=== PATIENT | male | born 1950 | race Caucasian/White ===

== ENCOUNTER 2021-08-23 10:30 | Day surgery (SDC) | payer MEDICARE ==
[2021-08-21 09:52] VITALS: BMI 32.4
--- NOTE | 2021-08-22 20:29 | HP ---
HISTORY AND PHYSICAL DATE OF SURGERY: 08/23/2021 Arian Olivo is a 71-year-old gentleman seen with progressive left knee pain. We discussed options for treatment. He elected to proceed with arthroscopy. Consent was obtained. Cardiac clearance was provided by Dr. Eden. PAST MEDICAL HISTORY: Hypertension, hyperlipidemia, cardiovascular disease. PAST SURGICAL HISTORY: Colon resection, right above-knee amputation, heart valve replacement, lithotripsy. DAILY MEDICATIONS: Atorvastatin, losartan, warfarin, aspirin. ALLERGIES: ATIVAN, HALDOL. SOCIAL HISTORY: He denies tobacco use. PHYSICAL EVALUATION OF THE LEFT KNEE: His range of motion is zero to 115 degrees. There is tenderness along the medial joint line. Positive medial Rigo's. Ligaments are stable. Hip rotation is without pain. His distal neurovascular exam is intact. Radiographs of the left knee reveal mild osteoarthritic changes. IMPRESSION: 1. Internal derangement of left knee with medial meniscal tear. 2. Hypertension. 3. Hyperlipidemia. PLAN: Left knee arthroscopy with partial meniscectomy and debridement. MMODL / IJN: [id number] /
[~2021-08-23 10:30] MED LIST: HYDROmorphone 0.5 MG/0.5 ML SYRINGE IVP PRN; LIDOCAINE 1% (10MG/ML) FOR IV START INTRADERMA PRN; ONDANSETRON 4 MG/2 ML VIAL IVP ONE
[2021-08-23] MEDS: LACTATED RINGERS 1,000 ML IV SCH ×3 (10:41→16:35)
[2021-08-23] MEDS ORDERED: BUPIVACAINE (PF) 0.25% 30 ML VIAL SQ ONE ×2 (12:26→14:37)
[2021-08-23 12:50] LABS: INR 1.1 (<1.2); Prothrombin Time 11.2 sec (9.0-12.0)
[2021-08-23] MEDS ORDERED: MIDAZOLAM 2 MG/2 ML VIAL ONE (13:55)
[2021-08-23] MEDS ORDERED: PROPOFOL 10 MG/ML 20 ML VIAL IV ONE (13:55)
[2021-08-23] MEDS ORDERED: .fentaNYL (PF) 50 MCG/ML AMP ONE (13:55)
[2021-08-23 14:52] VITALS: TEMP 97.5
--- NOTE | 2021-08-23 14:57 | P.OP ---
Date of Procedure: 08/23/21 Preoperative Diagnosis: Internal derangement left knee Postoperative Diagnosis: 1. Tear medial meniscus left knee 2. Grade 4 chondromalacia medial femoral condyle left knee 3. Reactive synovitis medial, lateral and suprapatellar compartments left knee Procedure(s) Performed: 1. Arthroscopic partial medial meniscectomy left knee 2. Arthroscopic chondroplasty medial femoral condyle left knee 3. Arthroscopic microfracture medial femoral condyle left knee 4. Arthroscopic partial synovectomy medial, lateral and suprapatellar compartments left knee Anesthesia: local, spinal Surgeon: Tom Wilkerson Estimated Blood Loss (ml): 6 Pathology: none sent Condition: stable Disposition: PACU Indications for Procedure: 71-year-old patient seen with progressive left knee pain. After having treatment options discussed, he elected to proceed with arthroscopy. Operative Findings: See description of procedure Description of Procedure: Patient was taken to the operative suite. Patient underwent a spinal anesthetic by the department of anesthesia. Patient was given preoperative antibiotics. The left lower extremity was placed in a well-padded arthroscopic leg enrique. The left leg was prepped and draped in the normal sterile orthopedic fashion. A lateral parapatellar and suprapatellar incision was made. Trochars were inserted. Arthroscopy was initiated. Suprapatellar pouch left. The patellofemoral joint appeared appeared to articulate congruently. There was grade 1 chondromalacia of the patella with osteochondraltearspresent. The scope was guided into the medial gutter. No loose bodies or plica were identified. The scope was then guided into the medial compartment. A medial parapatellar incision was made. Trocar inserted followed by probe. There was a complex tear involving the posterior horn medial meniscus. There were grade 4 chondromalacia changes of medial femoral condyle with use osteochondral flap tears present. There was thick reactive synovitis anteriorly. I performed a partial medial meniscectomy getting down to stable meniscal tissue. I performed a chondroplasty of the medial femoral condyle getting down to stable osteochondral tissue. I performed a partial synovectomy decompressing the thick reactive synovitis. The residual meniscus was stable. The residual osteochondral surface was stable. There was good decompression of the synovitis. I did note an area of exposed bone measuring about 1 cm along the weightbearing surface of the medial femoral condyle. I performed a microfracture to that area penetrated the bone with resultant bleeding at the microfracture site. I again probed the area and was stable. Scope and probe were then guided into the intercondylar notch. Cruciates were identified, probed and found to be stable. The scope and probe were then guided into lateral compartment. Lateral meniscus was found to be stable. There were some grade 1 chondromalacia changes lateral compartment with no tears. There was some thick reactive synovitis anteriorly. I introduced a motorized shaver and performed a partial synovectomy. Shaver was removed. There appeared be good decompression of the synovitis. The scope was in guided back into the suprapatellar compartment. I introduced a motorized shaver into the super patellar compartment. I debrided out some piecemeal fragments of meniscus I encountered. I performed a partial synovectomy. Shaver was removed. There was good decompression of the synovitis. I took one more look around the entire knee, no residual debris. Instruments were now removed from the joint. The joint was infiltrated with .25% Marcaine. Steri-Strips were applied to the portal sites. Sterile dressings were applied. The patient was placed into a STEF hose. No tourniquet was utilized. The patient was awak ened, transferred to a bed and taken to recovery stable satisfactory condition.
[2021-08-23 16:52] VITALS: BP 122/80; PULSE 77; RESP 20
== END 2021-08-23 16:55 | disposition home or self-care (01) ==
LOC: OR 10:30
PROVIDERS: ATTEND Orthopaedic Surgery
DX: S83.242A Other tear of medial meniscus, current injury, left knee, initial encounter (principal); M94.262 Chondromalacia, left knee; M65.9 Synovitis and tenosynovitis, unspecified; I10 Essential (primary) hypertension; I25.10 Atherosclerotic heart disease of native coronary artery without angina pectoris; F32.9 Major depressive disorder, single episode, unspecified; E78.5 Hyperlipidemia, unspecified; Z79.899 Other long term (current) drug therapy; Z79.01 Long term (current) use of anticoagulants; Z88.8 Allergy status to other drugs, medicaments and biological substances
CPT/HCPCS: 85610; 29881; 29879; 29876; J2250; J0690; J2405; J3010; J2704

== ENCOUNTER → 2022-02-22 | Outpatient (CLI) | payer MEDICARE | END | disposition home or self-care (01) | LOC: LABPAT 11:54 | PROVIDERS: ATTEND Orthopaedic Surgery | DX: Z01.812 Encounter for preprocedural laboratory examination (principal); Z22.322 Carrier or suspected carrier of Methicillin resistant Staphylococcus aureus; M17.12 Unilateral primary osteoarthritis, left knee | CPT/HCPCS: 87070 ==

== ENCOUNTER 2022-04-15 11:04 | Inpatient (IN) | payer MEDICARE ==
[2022-04-12 08:31] VITALS: BMI 29.9
--- NOTE | 2022-04-14 12:07 | HP ---
HISTORY AND PHYSICAL REASON FOR ADMISSION: Surgery is scheduled for 04/15/2022 HISTORY OF PRESENT ILLNESS: Arian Olivo is a 71-year-old patient seen with symptomatic left knee osteoarthritis. We discussed options for treatment. He elected to proceed with left total knee arthroplasty. Consents obtained. Medical clearance was provided by. Dr. Singh. Cardiac clearance was provided by Dr. Eden. PAST MEDICAL HISTORY: Hyperlipidemia, hypertension, cardiovascular disease. PAST SURGICAL HISTORY: Right knee amputation, valve replacement surgery, colon resection, lithotripsy. DAILY MEDICATIONS: Atorvastatin, losartan, sertraline, warfarin, Tylenol. ALLERGIES: ATIVAN, HALDOL. SOCIAL HISTORY: Denies tobacco use. PHYSICAL EVALUATION OF THE LEFT KNEE: Range of motion is -3/4-125. Mild effusion. Tenderness medial joint line. Crepitus along the medial patellofemoral compartments with range of motion. Pain with patellofemoral compression. Ligaments stable. Hip rotation without pain. Distal neurovascular exam intact. RADIOGRAPHS: Radiographs of the left knee reveal severe osteoarthritic changes. IMPRESSION: 1. Left knee osteoarthritis. 2. Hypertension. 3. Hyperlipidemia. 4. Cardiovascular disease. PLAN: Left total knee arthroplasty. Surgery is 04/15/2022. MMODL / IJN: [id number] /
[~2022-04-15 11:04] MED LIST changes: +ACETAMINOPHEN TAB 500 MG TAB PO PRN; +DEXAMETHASONE SOD PHOSPHATE 4 MG/ML 1 ML VIAL IV ONE; -HYDROmorphone 0.5 MG/0.5 ML SYRINGE IVP PRN; +LACTATED RINGERS 1,000 ML IV SCH; -LIDOCAINE 1% (10MG/ML) FOR IV START INTRADERMA PRN; +MELOXICAM 7.5 MG TAB PO PRN; +TRANEXAMIC ACID IN NACL,ISO-OS 1,000 MG in SALINE 1 100ML.BAG IVPB PRN; +fentaNYL (PF) 50 MCG/ML 2 ML AMP IV PRN
[2022-04-15] MEDS ORDERED: MIDAZOLAM 2 MG/2 ML VIAL IVP ONE (12:12)
[2022-04-15 12:23] LABS: INR 1.2 (<1.2); Prothrombin Time 12.2 sec (9.0-12.0)
[2022-04-15] MEDS ORDERED: NEOSTIGMINE 1 MG/ML 10 ML VIAL ONE (12:37)
[2022-04-15] MEDS ORDERED: LIDOCAINE 2% INJ 20 MG/ML (2 ML VIAL) ONE (12:37)
[2022-04-15] MEDS ORDERED: PHENYLEPHRINE-0.9% NACL SYG 1,000 MCG/10 ML SYRINGE ONE (12:37)
[2022-04-15] MEDS ORDERED: PROPOFOL 10 MG/ML 20 ML VIAL IV ONE (12:37)
[2022-04-15] MEDS ORDERED: MIDAZOLAM 2 MG/2 ML VIAL ONE (12:37)
[2022-04-15] MEDS ORDERED: GLYCOPYRROLATE 0.2 MG/ML 2 ML VIAL ONE (12:37)
[2022-04-15] MEDS ORDERED: ePHEDrine 50 MG/ML 1 ML VIAL ONE (12:37)
[2022-04-15] MEDS ORDERED: TRANEXAMIC ACID IN NACL,ISO-OS 1,000 MG/100 ML BAG ONE (12:37)
[2022-04-15] MEDS ORDERED: SUCCINYLCHOLINE CHLORIDE 200 MG/10 ML VIAL IV ONE (12:37)
[2022-04-15] MEDS ORDERED: HYDROmorphone (PF) 1 MG/ML ONE (12:37)
[2022-04-15] MEDS ORDERED: ROCURONIUM 10 MG/ML (5 ML VIAL) IV ONE (12:37)
[2022-04-15] MEDS ORDERED: fentaNYL (PF) 50 MCG/ML 2 ML AMP ONE (12:37)
[2022-04-15] MEDS ORDERED: ROPIVACAINE 5 MG/ML 30 ML VIAL ONE (12:37)
[2022-04-15] MEDS ORDERED: ceFAZolin 1,000 MG in SODIUM CHLORIDE 0.9% 1,000 ML IRRIGATION ONE (13:16)
[2022-04-15] MEDS ORDERED: ROPIVACAINE 0.2%-NS ON-Q PUMP 1,090 MG, EMPTY PAIN BALL 1 EACH MISCELLANE PRN (13:45)
--- NOTE | 2022-04-15 14:04 | P.ANPRN ---
Procedure Note - Anesthesia - Nerve Block Performed Left Adductor Canal Infusion Time Out Performed: Yes (1211) Date of Procedure: 04/15/22 Procedure Start Time: 12:11 Procedure Stop Time: 12:21 Location of Patient: PreOp Indication: Acute Post-Operative Pain, Dx/Pain Location, Requested by Surgeon Specifically requested for management of pain by DrMarely: Tom Wilkerson Sedation Type: Sedate with meaningful contact maintained Preparation: Sterile Prep, Sterile Dressing Position: Supine Catheter: Indwelling Needle Types: Pajunk Needle Gauge: 18 Ultrasound used to visualize needle placement: Yes Ultrasound used to observe medication spread: Yes Injectate: 0.5% Ropivacaine (see comment for volume) (15 cc) Blood Aspirated: No Pain Paresthesia on Injection Noted: No Resistance on Injection: Normal Image Stored and Saved: Yes Events: Uneventful and Well Tolerated (30 cc) Left iPack Single Time Out Performed: Yes Date of Procedure: 04/15/22 Location of Patient: PreOp Indication: Acute Post-Operative Pain, Dx/Pain Location (Left Knee), Requested by Surgeon Specifically requested for management of pain by DrMarely: Tom Wilkerson Sedation Type: Sedate with meaningful contact maintained Preparation: Sterile Prep Position: Right Lateral Catheter: None Needle Types: Pajunk Needle Gauge: 21 Ultrasound used to visualize needle placement: Yes Ultrasound used to observe medication spread: Yes Injectate: 0.5% Ropivacaine (see comment for volume) (15 cc) Blood Aspirated: No Pain Paresthesia on Injection Noted: No Resistance on Injection: Normal Image Stored and Saved: Yes Events: Uneventful and Well Tolerated
--- NOTE | 2022-04-15 14:27 | P.OP ---
Date of Procedure: 04/15/22 Preoperative Diagnosis: Left knee osteoarthritis Postoperative Diagnosis: Left knee osteoarthritis Procedure(s) Performed: Left total knee arthroplasty Implants: 1. Depuy attune size 6 left cruciate retaining cemented femur 2. Depuy attune size 6 fixed bearing cemented tibial baseplate 3. Depuy attune size 6 fixed bearing cruciate retaining 14 mm polyethylene tibial insert 4. Depuy attune 38 mm all polyethylene cemented patella Anesthesia: GETA, regional (Adductor canal catheter, Ipack block) Surgeon: Tom Wilkerson Melter Supervisor [employer] #1: Naif Gutierrez Estimated Blood Loss (ml): 45 Pathology: other (Bone) Condition: stable Disposition: PACU Indications for Procedure: 71-year-old patient seen with symptomatic left knee osteoarthritis. After treatment options were discussed, he elected to proceed with total knee arth roplasty. Operative Findings: See description of procedure Description of Procedure: Patient was taken to the operative suite after having an adductor canal catheter placed by the department of anesthesia as well as an Ipack block for postoperative pain management. Patient underwent a general anesthetic by the department of anesthesia. Patient was given preoperative IV intake antibiotics and TXA. A well-padded tourniquet was placed about the left lower extremity. The lower extremity was then prepped and draped in the normal sterile orthopedic fashion. The extremity was elevated, a tourniquet was insufflated to 300. A standard anterior incision was made sharply through skin. Dissection was taken down through the subcutaneous soft tissues down to the extensor mechanism. A medial arthrotomy was performed, patella was everted and knee was flexed. There was advanced osteoarthritis noted. I introduced my distal intramedullary femo ral drill. I then introduced the distal femoral cutting jig. Ang FAUST secured the cutting jig with 2 pins. I held retractors in position while Ang FAUST performed the distal femoral resection through the guide area we now removed her distal femoral cutting guide. We now placed our 4-in-1 femoral cutting block and positioned and it was secured with 2 pins by Ang FAUST while I held the block in position. The distal femoral finishing was now completed. A proximal tibial cutting guide was positioned. I held the guide in the appropriate position with both hands well Ang FAUST inserted stabilizing pins into the guide. Proximal tibial cut was made. We now placed a trial femoral component into position, along with an appropriate size tibial tray and insert. We now took the knee through range of motion and had full extension good flexion and good overall soft tissue balance noted. The patella was everted and stabilized with 2 towel clips held by Ang FAUST while I performed a flush with patellar quad tendon utilizing a fresh sawblade. We templated the patella, appropriate drill holes were made. An appropriate trial patella was positioned, knee was taken through full range of motion with the patella tracking very nicely. The trial patella was removed. Drill holes were made through the femoral component. All trial components were removed after marking off the appropriate rotation of the tibia. Retractors were now positioned along the proximal tibia. An appropriate keel punch was made with the appropriate size tibial guide by myself on Ang FAUST assisted by holding retractors. At this point appropriate size implants were chosen and opened. The joint was irrigated copiously with pulse lavage mechanical irrigation. The posterior capsule was infiltrated with local analgesic. The wound was irrigated with pulse lavage mechanical irrigation. We mixed antibiotic methylmethacrylate. We placed the knee into flexion. We placed multiple retractors assisted by Ang FAUST to expose the proximal tibia. Once the methyl methacrylate was ready, the tibial component was cemented into place removing any excess methylmethacrylate form by both myself and Ang FAUST. The femoral component was cemented into place removing the removing any excess methylmethacrylate performed by both myself and Ang FAUST. We then inserted the appropriate size polyethylene tibial insert. We made sure that it was locked into position. We took the knee into full extension, and then back in a flexion making sure we had removed any excess methylmethacrylate. The patellar component was then cemented down and secured with clamp. Excess methylmethacrylate removed. We kept the knee in full extension, patellar clamp in position until methylmethacrylate had hardened. Once it had hardened the patellar clamp was removed. The knee was taken through full range of motion. The patella tracked nicely. There was good soft tissue balancing. The tourniquet was now released. Additional hemostasis was achieved via electrocautery. A second gram of TXA was given. The wound again was irrigated with pulse lavage mechanical irrigation. The superficial soft tissues were infiltrated local analgesic. The extensor mechanism was repaired with Ethibond suture. We checked the repair with range of motion and it was stable. The subcutaneous soft tissues were repaired with Vicryl in layers. The skin was approximated with pernio/Dermabond. Sterile dressings were applied followed by loose web roll and Marquis bandage. The patient was transferred to a bed, and taken to recovery in stable and satisfactory condition. Ang FAUST assisted with this complex procedure.
[2022-04-15] MEDS ORDERED: HYDROmorphone 0.5 MG/0.5 ML SYRINGE IVP PRN ×2 (14:28)
[2022-04-15] MEDS ORDERED: NALOXONE 0.4 MG/ML 1 ML VIAL IV PRN (14:28)
[2022-04-15] MEDS ORDERED: ONDANSETRON 4 MG/2 ML VIAL IVP PRN (14:28)
[2022-04-15] MEDS ORDERED: HYDROmorphone 0.5 MG/0.5 ML SYRINGE IVP ONE ×4 (15:09→15:38)
--- NOTE | 2022-04-15 15:20 | XR ---
Limited left knee HISTORY: Status post left knee arthroplasty 2 views the left knee Patient is status post left knee arthroplasty. There is anatomic alignment. Lucencies present within the soft tissues consistent with postop state. There is soft tissue swelling. IMPRESSION: Orthopedic follow-up.
[2022-04-15] MEDS ORDERED: ONDANSETRON 4 MG/2 ML VIAL IVP ONE (15:38)
[2022-04-15] MEDS: LACTATED RINGERS 1,000 ML IV SCH (16:30)
[2022-04-15] MEDS: HYDROcodone/APAP 5-325MG 1 EACH TAB PO PRN (17:38)
[2022-04-15] MEDS ORDERED: WARFARIN 2 MG TAB PO ONE (18:00)
[2022-04-15] MEDS: ENOXAPARIN 30 MG/0.3 ML SYRINGE SQ SCH (20:17)
[2022-04-15] MEDS: SENNOSIDES-DOCUSATE SODIUM 1 EACH TAB PO SCH (20:17)
[2022-04-15] MEDS: HYDROmorphone 0.5 MG/0.5 ML SYRINGE IVP PRN (21:25)
[2022-04-16] MEDS: HYDROmorphone 0.5 MG/0.5 ML SYRINGE IVP PRN ×3 (00:40→23:16)
--- NOTE | 2022-04-16 00:40 | P.CONS ---
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 He tolerated by mouth intake. Currently he denies any chest pain trouble breathing abdominal pain nausea vomiting. Patient was able to urinate with no issues Review of Systems Pertinent positives as noted in HPI. 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), hx migraines, skin cancer, HX COLITIS, COVID x 2(last November 2021), hx pancreatitis, History of Any Multi-Drug Resistant Organisms: MRSA Year Discovered:: 2013 MDRO Source:: rt leg Past Surgical History: Appendectomy, Bowel Resection, Cardiac Valve Replacement, Hernia Repair, Orthopedic Surgery Additional Past Surgical History / Comment(s): BOWEL RESECTION X3, COLONOSCOPY, HEART VALVE REPLACEMENT, SKIN CANCER REMOVED, RT AKA-2014 OR 2016, BILAT CATARACTS REMOVED WITH LENS IMPLANTS, fem fem bypass Past Anesthesia/Blood Transfusion Reactions: Motion Sickness Past Psychological History: Depression Smoking Status: Former smoker Past Alcohol Use History: Occasional Additional Past Alcohol Use History / Comment(s): QUIT SMOKING CIGARS 2013 Past Drug Use History: None Reported - Past Family History Father Family Medical History: Cancer Medications and Allergies Home Medications Medication Instructions Recorded Confirmed Type Aspirin 81 mg PO DAILY 08/21/21 04/15/22 History Atorvastatin [Lipitor] 10 mg PO HS 08/21/21 04/15/22 History Glucosamine/Chondr Ballard A Sod [Osteo 2 each PO DAILY 08/21/21 04/15/22 History Bi-Flex Caplet] Losartan [Cozaar] 25 mg PO DAILY 08/21/21 04/15/22 History Multivit-Min/Folic/Vit K/Lycop 1 each PO DAILY 08/21/21 04/15/22 History [Men's Multivitamin Tablet] Sertraline [Zoloft] 100 mg PO DAILY 08/21/21 04/15/22 History Warfarin [Coumadin] 2.5 mg PO HS 08/21/21 04/15/22 History Zinc 50 mg PO DAILY 08/21/21 04/15/22 History Acetaminophen [Tylenol] 650 mg PO HS 04/12/22 04/15/22 History Allergies Allergy/AdvReac Type Severity Reaction Status Date / Time haloperidol [From Haldol] Allergy COMBATATIVE, Verified 04/15/22 11:45 AGITATED lorazepam [From Ativan] Allergy COMBATATIVE, Verified 04/15/22 11:45 AGITATED Physical Exam Vitals: Vital Signs Temp Pulse Resp BP Pulse Ox 04/15/22 19:37 91 110/74 95 04/15/22 19:22 95 119/80 93 L 04/15/22 19:07 102 H 129/82 04/15/22 18:52 99 111/69 86 L 04/15/22 18:37 96 128/79 87 L 04/15/22 18:23 91 122/77 94 L 04/15/22 18:07 100 135/87 92 L 04/15/22 17:53 111 H 125/85 92 L 04/15/22 17:22 89 119/76 95 04/15/22 17:00 16 04/15/22 16:26 92 16 111/75 96 04/15/22 16:02 90 16 104/64 92 L 04/15/22 15:47 82 16 107/78 95 04/15/22 15:37 80 16 119/78 96 04/15/22 15:20 78 16 110/71 95 04/15/22 15:05 80 16 106/73 96 04/15/22 15:00 87 16 103/67 95 04/15/22 12:32 43 L 16 130/74 95 04/15/22 11:37 97.5 F L 64 16 150/80 94 L Intake and Output 04/15/22 04/15/22 04/16/22 14:59 22:59 06:59 Intake Total 751 1000 Output Total 45 Balance 706 1000 Intake: IV 751 350 Intake, IV Titration 300 Amount Lactated Ringers 1,000 ml 300 @ 100 mls/hr IV .Q10H [facility] Rx#:[id number] Oral 350 Output: Estimated Blood Loss 45 Other: Voiding Method Urinal Weight 88.1 kg 88.1 kg Constitutional: No acute distress, conversant, pleasant Eyes: Anicteric sclerae, moist conjunctiva, Pupils equal round reactive to light ENMT: NC/AT Oropharynx clear, no erythema, or exudates Neck: Supple, FROM, no masses, or JVD No carotid bruits No thyromegaly Lungs: Clear to auscultation Clear to percussion Normal respiratory effort, no accessory muscle use Cardiovascular: Heart regular in rate and rhythm, No murmurs, gallops, or rubs No peripheral edema Abdominal: Soft Nontender, no guarding, rebound or rigidity Abdomen moving with respiration Normoactive bowel sounds No hepatomegaly, No splenomegaly No palpable mass No abdominal wall hernia noted Skin: Normal temperature, tone, texture, turgor No induration No subcutaneous nodules No rash, lesions No ulcers Extremities: Right above-knee amputation, right hand mid phalangeal amputation of the second finger No digital cyanosis No clubbing Pedal left intact Radial pulses intact and symmetrical No calf tenderness Psychiatric: Alert and oriented to person, place and time Appropriate affect fair judgement Neuro Muscles Strength 5/5 in bilateral upper extremities, limited exam over lower extremities to surgery patient's postop Sensation to light touch grossly present throughout Cranial nerves II-XII grossly intact No focal sensory deficits Lymphatics: no palpable cervical or supraclavicular , or inguinal lymph nodes Results Labs: Abnormal Lab Results - Last 24 Hours (Table) 04/15/22 Range/Units 12:06 PT 12.2 H (9.0-12.0) sec INR 1.2 H (<1.2) Assessment and Plan Assessment: Status post left total knee arthroplasty postoperative day 0 Pain management per primary team orthopedics DVT prophylaxis currently on Coumadin and Lovenox History of peripheral arterial disease, resume statin and aspirin Obstructive sleep apnea on CPAP Hyperlipidemia on statin Patient stable from medical standpoint Check CBC and BMP in the morning Thank you for allowing us to participate in the care of this patient. Do not hesitate to contact us with questions. Someone can be reached from the [facility] hospitalist group at all hours of the day at [phone].
[2022-04-16] MEDS: LACTATED RINGERS 1,000 ML IV SCH ×2 (00:42→14:59)
[2022-04-16] MEDS: HYDROcodone/APAP 7.5-325MG 1 EACH TAB PO PRN ×2 (02:10→08:07)
--- NOTE | 2022-04-16 07:49 | P.PN ---
Progress Note - Text Progress Note Date: 04/16/22 Postoperative day # 1 status post total knee arthroplasty, on adductor canal perineural catheter placed for postoperative analgesia. Ropivacaine 0.2% 8 mL per hour through ON-Q pump continuous infusion. Pain is well controlled. On visual analog scale 5/10 Patient is taking PRN oral pain medications. Catheter site: Looks Ok. There is no erythema or tenderness. Continue with the current pain management plan and will follow.
--- NOTE | 2022-04-16 10:02 | P.PN ---
Subjective Progress Note Date: 04/16/22 Principal diagnosis: Status post left total knee arthroplasty Patient was evaluated today at bedside, he is resting in his hospital chair. Patient does note some discomfort in the left knee. I was discussed with physical therapy prior to evaluating the patient, they stated once he was up and moving he did very well. He was having a lot of difficulty with his prosthetic leg on the right lower extremity. Patient does live at home with his . Currently denies any headaches, lightheadedness, chest pain or shortness of breath. Objective - Vital Signs Vital signs: Vital Signs Temp 97.8 F 04/16/22 07:34 Pulse 72 04/16/22 07:34 Resp 17 04/16/22 08:07 BP 117/74 04/16/22 07:34 Pulse Ox 96 04/16/22 08:05 FiO2 Intake & Output 04/15/22 04/16/22 04/16/22 18:59 06:59 18:59 Intake Total 1751 Output Total 45 500 Balance 1706 -500 Weight 88.1 kg Intake: IV 1101 Intake, IV Titration 300 Amount Lactated Ringers 1,000 ml 300 @ 100 mls/hr IV .Q10H [facility] Rx#:[id number] Oral 350 Output: Urine 500 Estimated Blood Loss 45 Other: Voiding Method Urinal Urinal - Exam Left lower extremity: Incision is clean, dry, and intact. The foam dressing is in good condition. Thre is minimal soft tissue swelling and ecchymosis surrounding the medial and l ateral aspects of the incision. calf is soft, no tenderness with palpation. Plantar flexion, dorsiflexion, EHL, FHL are intact. Sensory exam to light touch throughout the extremity is intact, dosal pedis pulses 2+. - Labs Labs: Abnormal Lab Results - Last 24 Hours (Table) 04/15/22 Range/Units 12:06 PT 12.2 H (9.0-12.0) sec INR 1.2 H (<1.2) Assessment and Plan Assessment: Postoperative day #1 status post left total knee arthroplasty Plan: Pain control, continue with oral medication. I did add tramadol 50 mg every 6 hours as needed for breakthrough DVT prophylaxis, Coumadin has been resumed. We'll continue Lovenox until INR is therapeutic Wound care, keep incision covered and dry. Do not remove the foam dressing at this time Ice and elevate the extremity often Continue PT/OT Encourage incentive spirometer Medical recommendations Discharge planning: Discussed with case management today possibility of subacute rehab. We will monitor patient Day or so with regards to his pain control and activity level to determine best fit for discharge. Time with Patient: Less than 30
[2022-04-16 10:10] LABS: Basophils # (A) 0.02 X 10*3/uL (0.00-0.10); Basophils % (A) 0.1 %; Eosinophils # (A) 0 X 10*3/uL (0.04-0.35); Eosinophils % (A) 0 %; HCT 40.5 % (39.6-50.0); HGB 13.1 g/dL (13.0-17.0); Immature Grans, Automated 0.5 %; Lymphocytes # (A) 0.54 X 10*3/uL (0.90-5.00); Lymphocytes % (A) 3.9 %; MCH 30.2 pg (27.0-32.0); MCHC 32.3 g/dL (32.0-37.0); MCV 93.3 fL (80.0-97.0); Mean Platelet Volume 11.8 fL (9.5-12.2); Monocytes # (A) 1.19 X 10*3/uL (0.20-1.00); Monocytes % (A) 8.7 %; NRBC Per 100 WBC 0 /100 WBCS (0.0-0.0); Neutrophils # (A) 11.93 X 10*3/uL (1.80-7.70); Neutrophils % (A) 86.8 %; Platelet Count 112 X 10*3/uL (140-440); RBC 4.34 X 10*6/uL (4.40-5.60); RDW 12.8 % (11.5-14.5); WBC 13.75 X 10*3/uL (4.50-10.00)
[2022-04-16] MEDS: ENOXAPARIN 30 MG/0.3 ML SYRINGE SQ SCH ×2 (10:45→21:55)
[2022-04-16] MEDS: ZINC SULFATE 220 MG CAP PO SCH (10:46)
[2022-04-16] MEDS: MELOXICAM 7.5 MG TAB PO SCH (10:46)
[2022-04-16] MEDS: LOSARTAN 25 MG TAB PO SCH (10:46)
[2022-04-16] MEDS: SERTRALINE 100 MG TAB PO SCH (10:47)
[2022-04-16 10:59] LABS: INR 1.09 (0.90-1.11); Prothrombin Time 11.9 sec (9.9-11.9)
[2022-04-16] MEDS: traMADol 50 MG TAB PO SCH ×3 (14:27→21:54)
[2022-04-16] MEDS: MULTIVITAMINS, THERA 1 EACH TAB PO SCH (14:28)
[2022-04-16] MEDS ORDERED: WARFARIN 5 MG TAB PO ONE (18:00)
[2022-04-16] MEDS: ATORVASTATIN 10 MG TAB PO SCH (21:54)
[2022-04-16] MEDS: SENNOSIDES-DOCUSATE SODIUM 1 EACH TAB PO SCH (21:55)
[2022-04-17] MEDS: HYDROcodone/APAP 7.5-325MG 1 EACH TAB PO PRN ×3 (00:57→22:32)
[2022-04-17] MEDS: LACTATED RINGERS 1,000 ML IV SCH ×3 (02:06→18:29)
[2022-04-17] MEDS: MELOXICAM 7.5 MG TAB PO SCH (08:36)
[2022-04-17] MEDS: ENOXAPARIN 30 MG/0.3 ML SYRINGE SQ SCH (08:36)
[2022-04-17] MEDS: traMADol 50 MG TAB PO SCH ×4 (08:36→21:15)
[2022-04-17] MEDS: SERTRALINE 100 MG TAB PO SCH (08:36)
[2022-04-17] MEDS: ZINC SULFATE 220 MG CAP PO SCH (08:36)
[2022-04-17] MEDS: LOSARTAN 25 MG TAB PO SCH (08:36)
[2022-04-17 09:55] LABS: INR 1.32 (0.90-1.11); Prothrombin Time 14.3 sec (9.9-11.9)
--- NOTE | 2022-04-17 12:22 | P.PN ---
Subjective Progress Note Date: 04/17/22 Principal diagnosis: Status post left total knee arthroplasty Patient was evaluated today at bedside, he is resting in his hospital bed. Having pain throughout the left knee, tramadol was added yesterday. Patient discussing with his the options for subacute rehab. Currently denies any headaches, lightheadedness, chest pain or shortness of breath. Objective - Vital Signs Vital signs: Vital Signs Temp 98.0 F 04/17/22 07:40 Pulse 89 04/17/22 07:40 Resp 17 04/17/22 07:40 BP 148/87 04/17/22 07:40 Pulse Ox 96 04/17/22 07:40 FiO2 Intake & Output 04/16/22 04/17/22 04/17/22 18:59 06:59 18:59 Output Total 950 500 Balance -950 -500 Output: Urine 950 500 Other: Voiding Method Urinal Urinal # Bowel Movements 1 - Exam Left lower extremity: Incision is clean, dry, and intact. The foam dressing is in good condition. Thre is minimal soft tissue swelling and ecchymosis surrounding the medial and lateral aspects of the incision. calf is soft, no tenderness with palpation. Plantar flexion, dorsiflexion, EHL, FHL are intact. Sensory exam to light touch throughout the extremity is intact, dosal pedis pulses 2+. - Labs CBC & Chem 7: 04/16/22 06:37 Labs: Abnormal Lab Results - Last 24 Hours (Table) 04/17/22 Range/Units 06:15 PT 14.3 H (9.9-11.9) sec INR 1.32 H (0.90-1.11) Assessment and Plan Assessment: Postoperative day #2 status post left total knee arthroplasty Plan: Pain control, continue with oral medication. Will change norco to every 4 hours DVT prophylaxis, Coumadin has been resumed. We'll continue Lovenox until INR is therapeutic Wound care, keep incision covered and dry. Do not remove the foam dressing at this time Ice and elevate the extremity often Continue PT/OT Encourage incentive spirometer Medical recommendations Discharge planning: Await authorization for subacute rehab. Time with Patient: Less than 30
[2022-04-17] MEDS: MULTIVITAMINS, THERA 1 EACH TAB PO SCH (12:39)
[2022-04-17] MEDS ORDERED: WARFARIN 5 MG TAB PO ONE (18:00)
[2022-04-17] MEDS: SENNOSIDES-DOCUSATE SODIUM 1 EACH TAB PO SCH (20:29)
[2022-04-17] MEDS: ATORVASTATIN 10 MG TAB PO SCH (20:29)
[2022-04-18] MEDS: HYDROcodone/APAP 7.5-325MG 1 EACH TAB PO PRN (02:52)
[2022-04-18] MEDS: LACTATED RINGERS 1,000 ML IV SCH (03:35)
[2022-04-18 04:24] LABS: Basophils % (A) 0 %; Eosinophils # (A) 0.1 k/uL (0-0.7); Eosinophils % (A) 2 %; HCT 39.6 % (39.0-53.0); HGB 13.1 gm/dL (13.0-17.5); Lymphocytes # (A) 0.8 k/uL (1.0-4.8); Lymphocytes % (A) 11 %; MCHC 33.2 g/dL (31.0-37.0); MCV 96.5 fL (80.0-100.0); Mean Platelet Volume 9.4; Monocytes # (A) 0.6 k/uL (0-1.0); Monocytes % (A) 8 %; Neutrophils # (A) 5.9 k/uL (1.3-7.7); Neutrophils % (A) 78 %; Platelet Count 101 k/uL (150-450); RDW 13.2 % (11.5-15.5); WBC 7.6 k/uL (3.8-10.6)
[2022-04-18 04:26] LABS: INR 1.6 (<1.2); Prothrombin Time 16.6 sec (9.0-12.0)
--- NOTE | 2022-04-18 09:28 | P.PN ---
Subjective Patient was examined at bedside today denies any new symptomatology. States that his pain is currently a 5 out of 10. 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 Patient denies any episodes of fever, chills, nausea or vomiting. Objective - Vital Signs Vital signs: Vital Signs Temp 98.3 F 04/18/22 08:34 Pulse 80 04/18/22 08:34 Resp 18 04/18/22 08:34 BP 104/68 04/18/22 08:34 Pulse Ox 96 04/18/22 08:34 FiO2 Intake & Output 04/17/22 04/18/22 04/18/22 18:59 06:59 18:59 Output Total 2500 850 Balance -2500 -850 Output: Urine 2500 850 Other: Voiding Method Urinal # Bowel Movements 1 1 - Exam Gen. patient is awake alert oriented 3 Chest patient normal S1-S2 heard Abdomen soft, nontender Respiratory no wheezing or rhonchi appreciated Extremity right above-knee amputation Psych patient is good spirits. - Labs CBC & Chem 7: 04/18/22 03:58 Labs: Abnormal Lab Results - Last 24 Hours (Table) 04/17/22 04/18/22 04/18/22 Range/Units 06:15 03:58 03:58 RBC 4.10 L (4.30-5.90) m/uL Plt Count 101 L (150-450) k/uL Lymphocytes # 0.8 L (1.0-4.8) k/uL PT 14.3 H 16.6 H (9.9-11.9) sec INR 1.32 H 1.6 H (0.90-1.11) Assessment and Plan Assessment: Assessment: #1 status post left total knee arthroplasty #2 history of peripheral arterial disease #3 obstructive sleep apnea #4 hyperlipidemia #5 history of DVT #6 history of heart valve replacement patient was not able to tell me which one Plan: -Internal medicine consulted for medical management -Patient is currently on Lovenox and Coumadin has been resumed. -Recommend full dose Lovenox if appropriate with orthopedic to bridge until INR between therapeutic range given history of valvular replacement and DVT in the past if being discharged. 1mg/kg BID if CrCl within normal limits. -Patient is not sure which valve was replaced was not able to give me more information. Recommend obtaining medical records if patient continues to be admitted -Case discussed with ortho PA regarding AC -Pain management when necessary -Current INR 1.6 -DVT prophylaxis -Disposition pending placement
[2022-04-18] MEDS: LOSARTAN 25 MG TAB PO SCH (10:01)
[2022-04-18] MEDS: SERTRALINE 100 MG TAB PO SCH (10:01)
[2022-04-18] MEDS: ZINC SULFATE 220 MG CAP PO SCH (10:01)
[2022-04-18 10:02] LABS: African American GFR (CKD) >90 (>60 ml/min/1.73 sqM); Anion Gap 4 mmol/L; Blood Urea Nitrogen 9 mg/dL (9-20); Calcium 8.7 mg/dL (8.4-10.2); Carbon Dioxide 30 mmol/L (22-30); Chloride 100 mmol/L (98-107); Glucose 108 mg/dL (74-99); Non-African American GFR(CKD) >90 (>60 ml/min/1.73 sqM); Potassium 3.7 mmol/L (3.5-5.1); Sodium 134 mmol/L (137-145)
[2022-04-18] MEDS: traMADol 50 MG TAB PO SCH ×2 (10:03→12:31)
[2022-04-18] MEDS: MELOXICAM 7.5 MG TAB PO SCH (10:06)
[2022-04-18] MEDS: ENOXAPARIN 30 MG/0.3 ML SYRINGE SQ SCH (10:07)
--- NOTE | 2022-04-18 11:44 | P.PN ---
Subjective Progress Note Date: 04/18/22 Principal diagnosis: Status post left total knee arthroplasty Patient was evaluated today at bedside, he is resting in his hospital bed. Patient states that the pain is better controlled today. We are waiting FOR rehab placement. Discuss internal medicine the Lovenox dose to utilize while bridging until the Coumadin is therapeutic. Currently denies any headaches, lightheadedness, chest pain or shortness of breath. Objective - Vital Signs Vital signs: Vital Signs Temp 98.3 F 04/18/22 08:34 Pulse 80 04/18/22 08:34 Resp 18 04/18/22 08:34 BP 104/68 04/18/22 08:34 Pulse Ox 96 04/18/22 08:34 FiO2 Intake & Output 04/17/22 04/18/22 04/18/22 18:59 06:59 18:59 Output Total 2500 850 Balance -2500 -850 Output: Urine 2500 850 Other: Voiding Method Urinal # Bowel Movements 1 2 - Exam Left lower extremity: Incision is clean, dry, and intact. The foam dressing is in good condition. Thre is minimal soft tissue swelling and ecchymosis surrounding the medial and lateral aspects of the incision. calf is soft, no tenderness with palpation. Plantar flexion, dorsiflexion, EHL, FHL are intact. Sensory exam to light touch throughout the extremity is intact, dosal pedis pulses 2+. - Labs CBC & Chem 7: 04/18/22 03:58 04/18/22 03:58 Labs: Abnormal Lab Results - Last 24 Hours (Table) 04/18/22 04/18/22 04/18/22 Range/Units 03:58 03:58 03:58 RBC 4.10 L (4.30-5.90) m/uL Plt Count 101 L (150-450) k/uL Lymphocytes # 0.8 L (1.0-4.8) k/uL PT 16.6 H (9.0-12.0) sec INR 1.6 H (<1.2) Sodium 134 L (137-145) mmol/L Creatinine 0.58 L (0.66-1.25) mg/dL Glucose 108 H (74-99) mg/dL Assessment and Plan Assessment: Postoperative day #3 status post left total knee arthroplasty Plan: Pain control, continue with oral medication. Will change norco to every 4 hours DVT prophylaxis, continue Lovenox and Coumadin until INR is therapeutic Discontinue the On-Q pain catheter Wound care, keep incision covered and dry. Do not remove the foam dressing at this time Ice and elevate the extremity often Continue PT/OT Encourage incentive spirometer Medical recommendations Discharge planning: Await authorization for subacute rehab Time with Patient: Less than 30
[2022-04-18] MEDS: MULTIVITAMINS, THERA 1 EACH TAB PO SCH (12:31)
--- NOTE | 2022-04-18 13:08 | P.DS ---
Providers Date of admission: 04/17/22 12:22 Expected date of discharge: 04/18/22 Attending physician: Tom Wilkerson Consults: 04/15/22 14:28 Consult Physician Routine Consulting Provider: Sandeep Yip Consult Reason/Comments: Medical management Do you want consulting provider notified?: Yes Primary care physician: [facility] Course: Date of admission: 04/15/2022 Date of discharge: 04/18/2022 Admission diagnosis: Status post left total knee arthroplasty Discharge diagnosis: Same Attending physician: Dr. Wilkerson Surgical procedures: Left total knee arthroplasty Brief history: Patient is a 71-year-old male with a history of progressive primary left knee osteoarthritis. At this point patient has failed conservative treatment measures and has opted to proceed with a elective left total knee arthroplasty. Hospital course: Details of patient's surgery can be found in operative report. Patient tolerated the procedure well and was subsequently transported to orthopedic floor. Patient's orthopeidc and medical care was provided daily. Patient had daily laboratory tests performed for evaluation of overall blood counts. Patient had daily physical therapy to include strengthening range of motion as well as education with walker ambulation. Patient was treated with Coumadin and Lovenox for their postoperative DVT prophylaxis during [facility]. Patient was noted to have a relatively uneventful postoperative course. Patient reported satisfactory pain control with oral pain medications by postoperative day 1. Patient showed satisfactory progress with physical therapy. Patient moved steadily through the program and had no difficulty meeting the goals by postoperative day 3. Given patient's otherwise satisfactory course and having met physical therapy goals, plan is to discharge patient rehab on postoperative day 3. Discharge condition/disposition: Patient will be discharged rehab in stable condition. Discharge medications: Instructions are given on resumption of patient's normal daily medications per primary care recommendation, in addition patient will be prescribed [place] 7.5 mg/325 mg, tramadol 50 mg, Colace 100 mg, MiraLAX 17 g, Lovenox 88 mg. Discharge instructions: 1. Wound care and infection precautions, keep incision dry and covered while showering, no lotions, creams, moisturizers. No soaking, tubs, pools, hottubs. Do not scrub over the incision. 2. Weight-bear as tolerated with walker / cane until follow-up. 3. Ice and elevate when necessary. Do not exceed 20 minutes per hour with ice pack. 4. Utilize compression sleeve until seen at first follow up appointment. 5. Visiting nursing care. 6. Home physical therapy including home CPM. 7. Pain meds and anticoagulants per prescription. 8. Pain medication has potential to cause constipation. Increase oral fluid and fiber intake. Contact primary care provider if you have not had a bowel movement within 48 hours after discharge 9. No anti-inflammatory medication until discussed at first post operative visit, this including Motrin, Aleve, Mobic, Diclofenac. 10. Follow up in office at 2 weeks postop with Ang Gutierrez PA-C/Srikanth Santiago 11. Follow up with your primary care doctor 7-10 days after discharge. 12. Contact [facility] with any questions, . Procedures: Left total knee arthroplasty Patient Condition at Discharge: Good Plan - Discharge Summary Discharge Rx Participant: Yes New Discharge Prescriptions: New Docusate [Colace] 100 mg PO DAILY #30 capsule polyethylene glycoL 3350 [Miralax] 17 gm PO DAILY PRN #21 packet PRN Reason: Constipation HYDROcodone/APAP 7.5-325MG [[place] 7.5] 1 each PO Q4HR PRN #42 tab PRN Reason: Pain traMADol HCl [Ultram] 50 mg PO Q6H PRN #10 tab PRN Reason: Pain Enoxaparin [Lovenox] 88 mg SQ Q12H #10 each No Action Warfarin [Coumadin] 2.5 mg PO HS Sertraline [Zoloft] 100 mg PO DAILY Losartan [Cozaar] 25 mg PO DAILY Atorvastatin [Lipitor] 10 mg PO HS Zinc 50 mg PO DAILY Multivit-Min/Folic/Vit K/Lycop [Men's Multivitamin Tablet] 1 each PO DAILY Acetaminophen [Tylenol] 650 mg PO HS Aspirin 81 mg PO DAILY Glucosamine/Chondr Ballard A Sod [Osteo Bi-Flex Caplet] 2 each PO DAILY Discharge Medication List Aspirin 81 mg PO DAILY 08/21/21 [History] Atorvastatin [Lipitor] 10 mg PO HS 08/21/21 [History] Glucosamine/Chondr Ballard A Sod [Osteo Bi-Flex Caplet] 2 each PO DAILY 08/21/21 [History] Losartan [Cozaar] 25 mg PO DAILY 08/21/21 [History] Multivit-Min/Folic/Vit K/Lycop [Men's Multivitamin Tablet] 1 each PO DAILY 08/21/21 [History] Sertraline [Zoloft] 100 mg PO DAILY 08/21/21 [History] Warfarin [Coumadin] 2.5 mg PO HS 08/21/21 [History] Zinc 50 mg PO DAILY 08/21/21 [History] Acetaminophen [Tylenol] 650 mg PO HS 04/12/22 [History] Docusate [Colace] 100 mg PO DAILY #30 capsule 04/18/22 [Rx] Enoxaparin [Lovenox] 88 mg SQ Q12H #10 each 04/18/22 [Rx] HYDROcodone/APAP 7.5-325MG [[place] 7.5] 1 each PO Q4HR PRN #42 tab 04/18/22 [Rx] polyethylene glycoL 3350 [Miralax] 17 gm PO DAILY PRN #21 packet 04/18/22 [Rx] traMADol HCl [Ultram] 50 mg PO Q6H PRN #10 tab 04/18/22 [Rx] Follow up Appointment(s)/Referral(s): Vicente Gomez MD [Primary Care Provider] - 1 Week Naif Gutierrez PAC [PHYSICIAN [employer]] - 05/01/22 4:30 pm Ambulatory/Diagnostic Orders: Comprehensive Metabolic Panel [LAB.AMB] Location: None Selected Prothrombin Time INR [LAB.AMB] Location: None Selected Activity/Diet/Wound Care/Special Instructions: Orthopedic Discharge Instructions: 1. Wound care and infection precautions, keep incision dry and covered while showering, no lotions, creams, moisturizers. No soaking, pools, hot tubs. Do not scrub over incision. 2. Weight-bear as tolerated with walker / cane until follow-up. 3. Ice and elevate when necessary. Do not exceed 20 minutes per hour with ice pack. 4. Utilize compression sleeve until seen at first follow up appointment. 5. Pain meds and anticoagulants per prescription. 6. Pain medication has potential to cause constipation. Increase oral fluid and fiber intake. Contact primary care provider if you have not had a bowel movement within 48 hours after discharge. 7. No anti-inflammatory medication until discussed at first post operative visit, this including Motrin, Aleve, Mobic, Diclofenac. 8. Follow up in office at 2 weeks postop with Ang Gutierrez PA-C/Srikanth Newton PA-C 9. Follow up with your primary care doctor 7-10 days after discharge. 10. Contact [facility] with any questions, . Wound care instructions: 1. Okay to remove foam dressing and a 2021 2. After removal of the dressing, shower directly over the incision Discharge Disposition: TRANSFER TO SNF/ECF
[2022-04-18 14:21] VITALS: BP 121/79; PULSE 86; RESP 17; TEMP 99
[2022-04-18] MEDS: HYDROcodone/APAP 5-325MG 1 EACH TAB PO PRN (14:54)
[2022-04-18] MEDS ORDERED: WARFARIN 2.5 MG TAB PO ONE (18:00)
[2022-04-18] MEDS ORDERED: ENOXAPARIN 100 MG/ML SYRINGE SQ SCH (21:00)
== END 2022-04-18 15:48 | DRG 470 ==
LOC: OR 11:04 → 4SSUR 14:50 → OR 04-16 10:03 → OBSVTOIN 04-17 12:22
PROVIDERS: ADMIT Orthopaedic Surgery; ATTEND Orthopaedic Surgery
PROC: 0SRD0J9 Replacement of Left Knee Joint with Synthetic Substitute, Cemented, Open Approach (ICD-10-PCS; principal; 2022-04-15 12:35)
DX: M17.12 Unilateral primary osteoarthritis, left knee (principal); I10 Essential (primary) hypertension; F32.A Depression, unspecified; I73.9 Peripheral vascular disease, unspecified; E78.5 Hyperlipidemia, unspecified; I25.10 Atherosclerotic heart disease of native coronary artery without angina pectoris; H91.90 Unspecified hearing loss, unspecified ear; G47.33 Obstructive sleep apnea (adult) (pediatric); Z96.1 Presence of intraocular lens; Z95.820 Peripheral vascular angioplasty status with implants and grafts; Z89.611 Acquired absence of right leg above knee; Z95.2 Presence of prosthetic heart valve; Z90.49 Acquired absence of other specified parts of digestive tract; Z87.442 Personal history of urinary calculi; Z98.890 Other specified postprocedural states; Z88.8 Allergy status to other drugs, medicaments and biological substances; Z86.718 Personal history of other venous thrombosis and embolism; Z85.828 Personal history of other malignant neoplasm of skin; Z86.14 Personal history of Methicillin resistant Staphylococcus aureus infection; Z86.16 Personal history of COVID-19; Z87.19 Personal history of other diseases of the digestive system; Z98.41 Cataract extraction status, right eye; Z98.42 Cataract extraction status, left eye; Z87.891 Personal history of nicotine dependence; Z80.9 Family history of malignant neoplasm, unspecified; Z79.82 Long term (current) use of aspirin; Z79.899 Other long term (current) drug therapy; Z79.01 Long term (current) use of anticoagulants; Z89.021 Acquired absence of right finger(s)
CPT/HCPCS: 64448; 64999; 76942; 80048; 85025; 85610; 88300; 94760